=== PATIENT | male | born 1985 | race Caucasian/White ===

== ENCOUNTER 2016-10-25 03:57 | Emergency (ER) | payer OTHER, SELFPAY ==
[2016-10-25 04:37] LABS: ALT (SGPT) 43 U/L (0-55); AST (SGOT) 27 U/L (5-34); Alkaline Phosphatase 80 U/L (40-150); Anion Gap 19 mmol/L (10-20); BUN (Urea Nitrogen) 7 mg/dL (8.9-20.6); Bilirubin, Total 0.4 mg/dL (0.2-1.2); Calc. Creatinine Clearance 0 mL/min (70-130); Carbon Dioxide 19 mmol/L (22-29); Chloride 106 mmol/L (98-107); Estimated GFR-MDRD Greater than 90; Globulin 2.7 g/dL (2.4-3.5); Hematocrit 43.1 % (42.0-52.0); Lipase 22 U/L (8-78); Mean Platelet Volume 8.6 fL (7.4-10.4); Neutrophil 57 % (42-75); Red Blood Cell (RBC) Count 4.86 mill/uL (4.70-6.10); Troponin I 0.024 ng/mL (< 0.028); White Blood Cell (WBC) Count 6.4 thou/uL (4.8-10.8)
[2016-10-25] MEDS ORDERED: Ibuprofen 200 MG TAB ONE (04:48)
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
== END 2016-10-25 04:40 | disposition home or self-care (01) ==
LOC: BURERS 03:57
DX: R07.9 Chest pain, unspecified (principal); I10 Essential (primary) hypertension; F17.210 Nicotine dependence, cigarettes, uncomplicated
CPT/HCPCS: 80053; 82553; 83690; 84484; 85025; 93005